=== PATIENT | male | born 1995 | race Caucasian/White ===

== ENCOUNTER 2024-04-20 20:57 | Inpatient (IN) | payer MEDICAID ==
[~2024-04-20] VITALS: Ht 177.8 cm; Wt 141.4 kg
[2024-04-20 21:43] LABS: BASOPHILS # (AUTO) 0.1 X10'3 (0-0.2); BASOPHILS % (AUTO) 0.7 % (0-1); EOSINOPHILS # (AUTO) 0.4 X10'3 (0-0.9); EOSINOPHILS % (AUTO) 3.9 % (0-6); HEMATOCRIT 45.5 % (42.0-52.0); HEMOGLOBIN 15.2 g/dl (14.0-17.9); LYMPHOCYTES # (AUTO) 3.2 X10'3 (1.1-4.8); LYMPHOCYTES % (AUTO) 28.5 % (21-51); MEAN CORPUSCULAR HEMOGLOBIN 31.5 PG (27.0-31.0); MEAN CORPUSCULAR HGB CONC 33.5 g/dL (33.0-36.5); MEAN CORPUSCULAR VOLUME 94.1 FL (78-98); MEAN PLATELET VOLUME 7.3 FL (7.4-10.4); MONOCYTES # (AUTO) 0.8 X10'3 (0-0.9); MONOCYTES % (AUTO) 7.5 % (2-12); NEUTROPHILS # (AUTO) 6.6 X10'3 (1.8-7.7); NEUTROPHILS % (AUTO) 59.4 % (42-75); PLATELET COUNT 382 X10'3 (140-440); RED BLOOD COUNT 4.84 X10'6 (4.70-6.10); RED CELL DISTRIBUTION WIDTH 13.5 % (11.5-14.5)
[2024-04-20 22:08] LABS: ALANINE AMINOTRANSFERASE 107 U/L (12-78); ALBUMIN 3.8 G/DL (3.4-5.0); ALBUMIN/GLOBULIN RATIO 1.2 (1.1-1.5); ALKALINE PHOSPHATASE 135 IU/L (46-116); ANION GAP 4 (8-16); ASPARTATE AMINO TRANSFERASE 45 U/L (10-37); BILIRUBIN,TOTAL 0.4 MG/DL (0.1-1.0); BLOOD UREA NITROGEN 18 MG/DL (7-18); BUN/CREATININE RATIO 21.2 (10.0-20.0); CALCIUM 8.6 MG/DL (8.5-10.1); CHLORIDE 105 MMOL/L (99-107); CREATININE 0.85 MG/DL (0.60-1.10); GLUCOSE 115 MG/DL (70-104); LIPASE 39 U/L (16-77); POTASSIUM 4.3 MMOL/L (3.5-5.1); SODIUM 138 MMOL/L (135-145); TOTAL CARBON DIOXIDE 28.8 MMOL/L (24-32); TOTAL PROTEIN 7.1 G/DL (6.4-8.2); eCRCL 132 ML/MIN; eGFR > 90 ML/MIN
[2024-04-20] MEDS ORDERED: NO HOME MEDS (23:05)
[2024-04-20] MEDS: ketorolac trometh 15mg/ml vial 15 MG/ML ML IV ONE (23:18)
[2024-04-20] MEDS ORDERED: magnesium Cl slow-release 64mg tablet PO PRN (23:20)
[2024-04-20] MEDS ORDERED: potassium Cl 20 mEq SR tablet PO PRN ×2 (23:20)
[2024-04-20] MEDS ORDERED: magnesium sulf-water 2g/50mL 50 ML IV PRN (23:20)
[2024-04-20] MEDS ORDERED: potassium Cl 40MEQ/1/2NS 520ml 520 ML IV PRN (23:20)
[2024-04-20] MEDS ORDERED: magnesium hydroxide 30ml (MOM) UD suspension PO PRN (23:20)
[2024-04-20] MEDS ORDERED: morphine 2 MG/ML inj. syringe IV PRN ×2 (23:20)
[2024-04-20] MEDS ORDERED: mag hydrox/Alum hydrox/simeth 30ml oral suspension PO PRN (23:20)
[2024-04-20] MEDS ORDERED: magnesium sulf-water 4G/100mL 100 ML IV PRN (23:20)
[2024-04-20 23:52] LABS: CHOL/HDL RATIO 4.6 (0.00-4.99); CHOLESTEROL 189 MG/DL (0-200); HDL CHOLESTEROL 41 MG/DL (35-60); LDL CHOLESTEROL 129 MG/DL (50-100); TRIGLYCERIDES 83 MG/DL (20-135)
[2024-04-21 00:19] LABS: BILIRUBIN,URINE NEGATIVE (Neg); CLARITY,URINE CLEAR (Clear); COLOR,URINE YELLOW (Yellow); GLUCOSE, URINE NEGATIVE (Neg); KETONES,URINE NEGATIVE (Neg); LEUKOCYTE ESTERASE ,URINE NEGATIVE (Neg); NITRITES, URINE NEGATIVE (Neg); OCCULT BLOOD,URINE NEGATIVE (Neg); PROTEIN,URINE NEGATIVE (Neg)
[2024-04-21 00:22] LABS: UA COLLECTION TYPE CLN CATCH MIDSTREAM
[2024-04-21] MEDS: normal saline 1000ml 1,000 ML IV SCH (00:25)
[2024-04-21 02:51] LABS: MEAN CORPUSCULAR HGB CONC 33.8 g/dL (33.0-36.5); WHITE BLOOD COUNT 12.2 X10'3 (4.5-11.0)
[2024-04-21 02:52] LABS: BASOPHILS # (AUTO) 0.1 X10'3 (0-0.2); BASOPHILS % (AUTO) 0.5 % (0-1); EOSINOPHILS # (AUTO) 0.4 X10'3 (0-0.9); EOSINOPHILS % (AUTO) 3.1 % (0-6); HEMATOCRIT 44.6 % (42.0-52.0); HEMOGLOBIN 15.1 g/dl (14.0-17.9); LYMPHOCYTES # (AUTO) 3.4 X10'3 (1.1-4.8); LYMPHOCYTES % (AUTO) 27.9 % (21-51); MEAN CORPUSCULAR HEMOGLOBIN 31.9 PG (27.0-31.0); MEAN CORPUSCULAR VOLUME 94.5 FL (78-98); MEAN PLATELET VOLUME 7.5 FL (7.4-10.4); MONOCYTES # (AUTO) 0.8 X10'3 (0-0.9); MONOCYTES % (AUTO) 6.7 % (2-12); NEUTROPHILS # (AUTO) 7.5 X10'3 (1.8-7.7); NEUTROPHILS % (AUTO) 61.8 % (42-75); PLATELET COUNT 365 X10'3 (140-440); RED BLOOD COUNT 4.72 X10'6 (4.70-6.10); RED CELL DISTRIBUTION WIDTH 13.3 % (11.5-14.5)
[2024-04-21 03:11] LABS: ALANINE AMINOTRANSFERASE 88 U/L (12-78); ALBUMIN 3.5 G/DL (3.4-5.0); ALBUMIN/GLOBULIN RATIO 1.1 (1.1-1.5); ALKALINE PHOSPHATASE 130 IU/L (46-116); ANION GAP 7 (8-16); ASPARTATE AMINO TRANSFERASE 43 U/L (10-37); BILIRUBIN,TOTAL 0.4 MG/DL (0.1-1.0); BLOOD UREA NITROGEN 18 MG/DL (7-18); BUN/CREATININE RATIO 23.1 (10.0-20.0); CALCIUM 8.3 MG/DL (8.5-10.1); CHLORIDE 105 MMOL/L (99-107); CREATININE 0.78 MG/DL (0.60-1.10); GLUCOSE 115 MG/DL (70-104); MAGNESIUM 2.1 MG/DL (1.5-2.4); POTASSIUM 4.1 MMOL/L (3.5-5.1); SODIUM 137 MMOL/L (135-145); TOTAL CARBON DIOXIDE 24.6 MMOL/L (24-32); TOTAL PROTEIN 6.6 G/DL (6.4-8.2); eCRCL 144 ML/MIN; eGFR > 90 ML/MIN
[2024-04-21 07:23] VITALS: BP 116/80; PULSE 67; RESP 16; TEMP 97.7; O2SAT 99
[2024-04-21 07:30] VITALS: RESP 18
[2024-04-21] MEDS: K and/or MAG REPLACEMENT MC SCH (08:00)
[2024-04-21] MEDS: docusate sod 100mg capsule PO SCH (08:00)
[2024-04-21] MEDS: pantoprazole 40 MG vial IV SCH (14:58)
[2024-04-21] MEDS ORDERED: iohexol 300mg/ml 100ml inj. ONE (15:30)
[2024-04-21 18:00] VITALS: BP 114/71; PULSE 83; RESP 16; TEMP 98.6; O2SAT 98
[2024-04-21 20:00] VITALS: RESP 18; O2SAT 96
[2024-04-21] MEDS: CefTRIAXone 2gm/D5W 50ml BAG 50 ML IV ONE (21:48)
[2024-04-21 22:00] VITALS: BP 122/83; PULSE 74; RESP 18; TEMP 97; O2SAT 98
[2024-04-22] VITALS (19 sets, daily range): BP systolic 93–174; BP diastolic 54–126; PULSE 51–77; RESP 12–18; TEMP 97.3–98.6; O2SAT 91–98
[2024-04-22 05:31] LABS: BASOPHILS # (AUTO) 0.1 X10'3 (0-0.2); BASOPHILS % (AUTO) 0.5 % (0-1); EOSINOPHILS # (AUTO) 0.3 X10'3 (0-0.9); EOSINOPHILS % (AUTO) 3.4 % (0-6); HEMATOCRIT 46.2 % (42.0-52.0); HEMOGLOBIN 15.6 g/dl (14.0-17.9); LYMPHOCYTES # (AUTO) 3.3 X10'3 (1.1-4.8); LYMPHOCYTES % (AUTO) 33.2 % (21-51); MEAN CORPUSCULAR HEMOGLOBIN 31.8 PG (27.0-31.0); MEAN CORPUSCULAR HGB CONC 33.7 g/dL (33.0-36.5); MEAN CORPUSCULAR VOLUME 94.4 FL (78-98); MEAN PLATELET VOLUME 7.4 FL (7.4-10.4); MONOCYTES # (AUTO) 0.7 X10'3 (0-0.9); MONOCYTES % (AUTO) 7.5 % (2-12); NEUTROPHILS # (AUTO) 5.4 X10'3 (1.8-7.7); NEUTROPHILS % (AUTO) 55.4 % (42-75); PLATELET COUNT 388 X10'3 (140-440); RED CELL DISTRIBUTION WIDTH 13.4 % (11.5-14.5); WHITE BLOOD COUNT 9.8 X10'3 (4.5-11.0)
[2024-04-22 05:47] LABS: ALANINE AMINOTRANSFERASE 99 U/L (12-78); ALBUMIN 3.7 G/DL (3.4-5.0); ALBUMIN/GLOBULIN RATIO 1.1 (1.1-1.5); ALKALINE PHOSPHATASE 113 IU/L (46-116); ANION GAP 11 (8-16); ASPARTATE AMINO TRANSFERASE 49 U/L (10-37); BILIRUBIN,TOTAL 0.7 MG/DL (0.1-1.0); BLOOD UREA NITROGEN 13 MG/DL (7-18); BUN/CREATININE RATIO 16.9 (10.0-20.0); CALCIUM 8.8 MG/DL (8.5-10.1); CHLORIDE 106 MMOL/L (99-107); CREATININE 0.77 MG/DL (0.60-1.10); GLUCOSE 91 MG/DL (70-104); MAGNESIUM 2.1 MG/DL (1.5-2.4); POTASSIUM 4.1 MMOL/L (3.5-5.1); SODIUM 140 MMOL/L (135-145); TOTAL CARBON DIOXIDE 23.3 MMOL/L (24-32); TOTAL PROTEIN 7.1 G/DL (6.4-8.2); eCRCL 146 ML/MIN; eGFR > 90 ML/MIN
[2024-04-22 05:48] LABS: APTT 30 SECONDS (22-32); PROTHROMBIN TIME 10.6 SECONDS (9.0-12.0)
[2024-04-22] MEDS ORDERED: BUPIVAcaine 2.5mg/ml inj 50ml vial (contains preservative) ONE (15:03)
[2024-04-22] MEDS ORDERED: sevoflurane 250ml liquid IH ONE (15:19)
[2024-04-22] MEDS ORDERED: ondansetron/PF 4mg/2ml inj IV PRN ×2 (15:25→16:40)
[2024-04-22] MEDS ORDERED: hydrALAZINE 20mg/ml inj. IV PRN (15:25)
[2024-04-22] MEDS ORDERED: meperidine/PF 100mg/ml syringe IV PRN ×2 (15:25)
[2024-04-22] MEDS ORDERED: labetalol 20mg/4ml (5mg/ml) syringe IV PRN (15:25)
[2024-04-22] MEDS ORDERED: proCHLORperazine 10 MG/2 ml inj IV PRN (15:25)
[2024-04-22] MEDS ORDERED: fentaNYL /PF 50mcg/ml 5ml ampule ONE (15:28)
[2024-04-22] MEDS ORDERED: midazolam 1 mg/ML 2ml injection ONE (15:28)
[2024-04-22] MEDS ORDERED: ondansetron/PF 4mg/2ml inj ONE (16:00)
[2024-04-22] MEDS ORDERED: rocuronium 10mg/ml inj IV ONE (16:00)
[2024-04-22] MEDS ORDERED: dexamethasone sod phosphate 4mg/ml inj. ONE (16:00)
[2024-04-22] MEDS ORDERED: propofol inj 20 ML IV ONE ×2 (16:00)
[2024-04-22] MEDS ORDERED: propofol inj 40 ML IV ONE (16:00)
[2024-04-22] MEDS ORDERED: ceFOXitin 1000 MG inj ONE (16:00)
[2024-04-22] MEDS ORDERED: LIDOcaine 2% (20mg/ml) 5ml vial ONE (16:00)
[2024-04-22] MEDS ORDERED: glycopyrrolate 0.2mg/ml inj ONE (16:32)
[2024-04-22] MEDS ORDERED: neostigmine methylsulfate 1 MG/ML 10ml vial ONE (16:32)
[2024-04-22] MEDS ORDERED: sugammadex 200mg/2ml injection IV ONE (16:39)
[2024-04-22] MEDS ORDERED: naloxone 0.4 mg/ml inj IV PRN (16:40)
[2024-04-22] MEDS ORDERED: HYDROmorphone inj. 0.5 MG/0.5 ML DISP.SYRIN IV PRN (16:45)
[2024-04-22] MEDS: acetaminophen 1,000mg/100ml IV 100 ML IV PRN (16:46)
[2024-04-22] MEDS: morphine 4 MG/ML inj SYRINge IV PRN (16:46)
[2024-04-22] MEDS: ketorolac trometh 30MG/ML vial 30 MG/ML VIAL IV PRN (16:55)
[2024-04-22] MEDS: morphine 2 MG/ML inj. syringe IV PRN (17:02)
[2024-04-22] MEDS: meperidine/PF 100mg/ml syringe IV PRN (17:26)
[2024-04-22] MEDS: ringers solution, lacted 1,000 ML IV SCH (18:00)
[2024-04-22] MEDS: HYDROcodone/acetaminophen 10/325mg tab PO PRN (19:32)
[2024-04-23] VITALS (8 sets, daily range): BP systolic 113–163; BP diastolic 67–85; PULSE 56–82; RESP 13–16; TEMP 97.6–98.4; O2SAT 95–99
[2024-04-23] MEDS: ceFOXitin 1 GM/D5W 50mL IVPB 50 ML IV SCH (01:14)
[2024-04-23] MEDS: ondansetron/PF 4mg/2ml inj IV PRN (01:26)
[2024-04-23 05:27] LABS: BASOPHILS # (AUTO) 0.1 X10'3 (0-0.2); BASOPHILS % (AUTO) 0.4 % (0-1); EOSINOPHILS % (AUTO) 0 % (0-6); HEMATOCRIT 46.7 % (42.0-52.0); HEMOGLOBIN 15.7 g/dl (14.0-17.9); LYMPHOCYTES # (AUTO) 1.2 X10'3 (1.1-4.8); LYMPHOCYTES % (AUTO) 6.2 % (21-51); MEAN CORPUSCULAR HEMOGLOBIN 31.9 PG (27.0-31.0); MEAN CORPUSCULAR HGB CONC 33.7 g/dL (33.0-36.5); MEAN CORPUSCULAR VOLUME 94.7 FL (78-98); MEAN PLATELET VOLUME 7.4 FL (7.4-10.4); MONOCYTES # (AUTO) 0.6 X10'3 (0-0.9); MONOCYTES % (AUTO) 3.2 % (2-12); NEUTROPHILS % (AUTO) 90.2 % (42-75); PLATELET COUNT 418 X10'3 (140-440); RED BLOOD COUNT 4.93 X10'6 (4.70-6.10); RED CELL DISTRIBUTION WIDTH 13.3 % (11.5-14.5); WHITE BLOOD COUNT 18.8 X10'3 (4.5-11.0)
[2024-04-23 05:54] LABS: ALANINE AMINOTRANSFERASE 91 U/L (12-78); ALBUMIN 3.6 G/DL (3.4-5.0); ALKALINE PHOSPHATASE 110 IU/L (46-116); ANION GAP 10 (8-16); ASPARTATE AMINO TRANSFERASE 39 U/L (10-37); BILIRUBIN,TOTAL 0.5 MG/DL (0.1-1.0); BLOOD UREA NITROGEN 13 MG/DL (7-18); BUN/CREATININE RATIO 17.6 (10.0-20.0); CALCIUM 8.8 MG/DL (8.5-10.1); CHLORIDE 104 MMOL/L (99-107); CREATININE 0.74 MG/DL (0.60-1.10); GLUCOSE 130 MG/DL (70-104); POTASSIUM 4.8 MMOL/L (3.5-5.1); SODIUM 138 MMOL/L (135-145); TOTAL PROTEIN 7.1 G/DL (6.4-8.2); eCRCL 152 ML/MIN; eGFR > 90 ML/MIN
[2024-04-23] MEDS: acetaminophen 325mg tablet PO PRN (16:33)
[2024-04-23 20:25] LABS: BASOPHILS # (AUTO) 0.1 X10'3 (0-0.2); BASOPHILS % (AUTO) 0.4 % (0-1); EOSINOPHILS # (AUTO) 0.1 X10'3 (0-0.9); EOSINOPHILS % (AUTO) 0.4 % (0-6); HEMOGLOBIN 15.4 g/dl (14.0-17.9); LYMPHOCYTES # (AUTO) 3.3 X10'3 (1.1-4.8); LYMPHOCYTES % (AUTO) 17.1 % (21-51); MEAN CORPUSCULAR HEMOGLOBIN 31.3 PG (27.0-31.0); MEAN CORPUSCULAR HGB CONC 32.9 g/dL (33.0-36.5); MEAN CORPUSCULAR VOLUME 95.1 FL (78-98); MEAN PLATELET VOLUME 7.3 FL (7.4-10.4); MONOCYTES # (AUTO) 1.4 X10'3 (0-0.9); MONOCYTES % (AUTO) 7.6 % (2-12); NEUTROPHILS # (AUTO) 14.3 X10'3 (1.8-7.7); NEUTROPHILS % (AUTO) 74.5 % (42-75); PLATELET COUNT 382 X10'3 (140-440); RED BLOOD COUNT 4.94 X10'6 (4.70-6.10); RED CELL DISTRIBUTION WIDTH 13.3 % (11.5-14.5); WHITE BLOOD COUNT 19.1 X10'3 (4.5-11.0)
[2024-04-23] MEDS: metoclopramide 5 mg/ml inj IV PRN (21:04)
[2024-04-24] VITALS (8 sets, daily range): BP systolic 109–130; BP diastolic 60–69; PULSE 66–85; RESP 14–17; TEMP 97.5–98.7; O2SAT 97–100
[2024-04-24 06:07] LABS: BASOPHILS % (AUTO) 0.3 % (0-1); EOSINOPHILS # (AUTO) 0.1 X10'3 (0-0.9); EOSINOPHILS % (AUTO) 1.1 % (0-6); HEMATOCRIT 44.3 % (42.0-52.0); LYMPHOCYTES # (AUTO) 3.3 X10'3 (1.1-4.8); LYMPHOCYTES % (AUTO) 24.8 % (21-51); MEAN CORPUSCULAR HEMOGLOBIN 31.9 PG (27.0-31.0); MEAN CORPUSCULAR HGB CONC 33.8 g/dL (33.0-36.5); MEAN CORPUSCULAR VOLUME 94.5 FL (78-98); MEAN PLATELET VOLUME 7.7 FL (7.4-10.4); MONOCYTES # (AUTO) 1.1 X10'3 (0-0.9); MONOCYTES % (AUTO) 8.1 % (2-12); NEUTROPHILS # (AUTO) 8.7 X10'3 (1.8-7.7); NEUTROPHILS % (AUTO) 65.7 % (42-75); PLATELET COUNT 341 X10'3 (140-440); RED BLOOD COUNT 4.69 X10'6 (4.70-6.10); RED CELL DISTRIBUTION WIDTH 13.3 % (11.5-14.5); WHITE BLOOD COUNT 13.3 X10'3 (4.5-11.0)
[2024-04-24 06:44] LABS: ALANINE AMINOTRANSFERASE 100 U/L (12-78); ALBUMIN 3.5 G/DL (3.4-5.0); ALBUMIN/GLOBULIN RATIO 1.1 (1.1-1.5); ALKALINE PHOSPHATASE 97 IU/L (46-116); ANION GAP 7 (8-16); ASPARTATE AMINO TRANSFERASE 41 U/L (10-37); BILIRUBIN,TOTAL 0.5 MG/DL (0.1-1.0); BLOOD UREA NITROGEN 14 MG/DL (7-18); BUN/CREATININE RATIO 17.7 (10.0-20.0); CALCIUM 8.8 MG/DL (8.5-10.1); CHLORIDE 106 MMOL/L (99-107); CREATININE 0.79 MG/DL (0.60-1.10); GLUCOSE 88 MG/DL (70-104); POTASSIUM 3.8 MMOL/L (3.5-5.1); SODIUM 140 MMOL/L (135-145); TOTAL CARBON DIOXIDE 27.4 MMOL/L (24-32); TOTAL PROTEIN 6.6 G/DL (6.4-8.2); eCRCL 142 ML/MIN; eGFR > 90 ML/MIN
[2024-04-24] MEDS: lactose-reduced food (Ensure Enlive) - 237ml bottle PO SCH (19:58)
[2024-04-25 05:27] LABS: BASOPHILS % (AUTO) 0.4 % (0-1); EOSINOPHILS # (AUTO) 0.2 X10'3 (0-0.9); EOSINOPHILS % (AUTO) 2.3 % (0-6); HEMATOCRIT 43.8 % (42.0-52.0); HEMOGLOBIN 14.8 g/dl (14.0-17.9); LYMPHOCYTES # (AUTO) 3.4 X10'3 (1.1-4.8); LYMPHOCYTES % (AUTO) 31.2 % (21-51); MEAN CORPUSCULAR HEMOGLOBIN 31.8 PG (27.0-31.0); MEAN CORPUSCULAR HGB CONC 33.7 g/dL (33.0-36.5); MEAN CORPUSCULAR VOLUME 94.1 FL (78-98); MEAN PLATELET VOLUME 7.6 FL (7.4-10.4); MONOCYTES # (AUTO) 0.9 X10'3 (0-0.9); MONOCYTES % (AUTO) 8.7 % (2-12); NEUTROPHILS # (AUTO) 6.2 X10'3 (1.8-7.7); NEUTROPHILS % (AUTO) 57.4 % (42-75); PLATELET COUNT 355 X10'3 (140-440); RED BLOOD COUNT 4.65 X10'6 (4.70-6.10); RED CELL DISTRIBUTION WIDTH 13.3 % (11.5-14.5); WHITE BLOOD COUNT 10.7 X10'3 (4.5-11.0)
[2024-04-25 05:47] LABS: ALANINE AMINOTRANSFERASE 95 U/L (12-78); ALBUMIN 3.2 G/DL (3.4-5.0); ALBUMIN/GLOBULIN RATIO 1.1 (1.1-1.5); ALKALINE PHOSPHATASE 94 IU/L (46-116); ANION GAP 5 (8-16); ASPARTATE AMINO TRANSFERASE 48 U/L (10-37); BILIRUBIN,TOTAL 0.5 MG/DL (0.1-1.0); BLOOD UREA NITROGEN 15 MG/DL (7-18); BUN/CREATININE RATIO 18.5 (10.0-20.0); CALCIUM 8.6 MG/DL (8.5-10.1); CHLORIDE 107 MMOL/L (99-107); CREATININE 0.81 MG/DL (0.60-1.10); GLUCOSE 87 MG/DL (70-104); SODIUM 141 MMOL/L (135-145); TOTAL CARBON DIOXIDE 29.5 MMOL/L (24-32); TOTAL PROTEIN 6.2 G/DL (6.4-8.2); eCRCL 139 ML/MIN; eGFR > 90 ML/MIN
[2024-04-25 06:00] VITALS: BP 115/70; PULSE 81; RESP 15; TEMP 98; O2SAT 95
[2024-04-25 08:00] VITALS: RESP 16; O2SAT 95
[2024-04-25] MEDS ORDERED: ACET-1008 PO (08:39)
[2024-04-25] MEDS: pantoprazole 40mg Tablet.DR PO SCH (08:44)
[2024-04-25] MEDS ORDERED: IBUP-1985 PO (10:46)
[2024-04-25] MEDS ORDERED: PANT40TA54 PO (10:46)
== END 2024-04-25 11:30 | disposition home or self-care (01) | DRG 263 ==
LOC: ER 20:58 → ED HOLD 23:20 → ORTHO 4S 04-21 07:08
PROVIDERS: ADMIT Internal Medicine Critical Care Medicine; ATTEND Internal Medicine
PROC: BW211ZZ Computerized Tomography (CT Scan) of Abdomen and Pelvis using Low Osmolar Contrast (ICD-10-PCS; 2024-04-21)
PROC: 8E0W4CZ Robotic Assisted Procedure of Trunk Region, Percutaneous Endoscopic Approach (ICD-10-PCS; 2024-04-22)
PROC: CF141ZZ Planar Nuclear Medicine Imaging of Gallbladder using Technetium 99m (Tc-99m) (ICD-10-PCS; 2024-04-22)
PROC: 0FT44ZZ Resection of Gallbladder, Percutaneous Endoscopic Approach (ICD-10-PCS; principal; 2024-04-22 15:19)
DX: K80.70 Calculus of gallbladder and bile duct without cholecystitis without obstruction (principal); E66.01 Morbid (severe) obesity due to excess calories; R74.8 Abnormal levels of other serum enzymes; Z90.49 Acquired absence of other specified parts of digestive tract; Z68.41 Body mass index [BMI] 40.0-44.9, adult
CPT/HCPCS: 36415; 74177; 74181; 76700; 78226; 80053; 80061; 81003; 83690; 83735; 84145; 85025; 85610; 85730; 87081; 93005; 99285; A4215; A4615; A4618; A6253; A6258; A7000; A9537; G0378; J0131; J0694; J0696; J1100; J1885; J2003; J2175; J2250; J2270; J2405; J2470; J2704; J2710; J2765; J3010; J3490; J7030; J7120; Q9967